=== PATIENT | male | born 1990 | race Caucasian/White ===

== ENCOUNTER 2019-03-20 20:13 | Emergency (ER) | payer BC, OTHER ==
[2019-03-20] MEDS ORDERED: Lidocaine 1% 10 ML MDV INJECT ONE (20:32)
[2019-03-20] MEDS ORDERED: Diphtheria,Pertussis(Acell),Tetanus Vaccine 0.5 ML Syringe IM ONE (20:32)
--- NOTE | 2019-03-20 20:47 | EDM.PDOC ---
ED HPI GENERAL MEDICAL PROBLEM - General Chief Complaint: Laceration Stated Complaint: PT HURT LT HAND Time Seen by Provider: 03/20/19 20:25 Source of Information: Reports: Patient History Limitations: Reports: No Limitations - History of Present Illness INITIAL COMMENTS - FREE TEXT/NARRATIVE: Presents reporting that he was going down the steps up a stack when he slipped and caught himself with his right hand. He lacerated the hand near the fifth finger area no other injuries. Unknown tetanus status. left palm Pain Score (Numeric/FACES): 6 - Related Data Allergies Allergy/AdvReac Type Severity Reaction Status Date / Time No Known Allergies Allergy Verified 03/20/19 20:32 Home Meds: Home Meds . [No Known Home Meds] 03/20/19 [History] Past Medical History - Past Health History Medical/Surgical History: Denies Medical/Surgical History ED ROS GENERAL - Review of Systems Review Of Systems: ROS reveals no pertinent complaints other than HPI. ED EXAM, SKIN/RASH Exam: See Below General Appearance: Alert, No Apparent Distress Ears: Normal External Exam Nose: Normal Inspection Throat/Mouth: Normal Inspection Head: Atraumatic, Normocephalic Neck: Normal Inspection Respiratory/Chest: No Respiratory Distress, Lungs Clear, Normal Breath Sounds Cardiovascular: Normal Peripheral Pulses Extremities: Other (Left hand palmar surface over the fifth MP joint 1.5 cm laceration. Full range of motion of all digits and wrist without hesitation or limitation fifth digit full flexion and extension. CMS intact distally) Neurological: Alert, Oriented ED SKIN PROCEDURES - Laceration/Wound Repair Left Hand Appearance: Superficial Anesthetic Type: Local Local Anesthesia - Lidocaine (Xylocaine): 1% Plain Local Anesthetic Volume: 3cc Skin Prep: Chlorhexidine (Hibiciens), Other (Running water) Exploration/Debridement/Repair: Wound Explored, In a Bloodless Field, Explored to Base Closed with: Sutures Lac/Wound length In cm: 1.5 Suture Size: 4-0 # of Sutures: 3 Suture Type: Nylon, Interrupted Course - Vital Signs Last Recorded V/S: Last Vital Signs Temp 36.5 C 03/20/19 20:26 Pulse 82 03/20/19 20:26 Resp 18 03/20/19 20:26 BP 142/74 H 03/20/19 20:26 Pulse Ox 97 03/20/19 20:26 - Orders/Labs/Meds Orders: Active Orders 24 hr Category Date Time Status Vaccines to be Administered [RC] PER UNIT ROUTINE Care 03/20/19 20:32 Ordered Diphth,Pertuss(Acell),Tet Vac [Adacel] Med 03/20/19 20:32 Once 0.5 ml IM .ONCE ONE Lidocaine 1% [Xylocaine 1%] Med 03/20/19 20:32 Once 10 ml INJECT ONETIME ONE Departure - Departure Time of Disposition: 20:53 Disposition: Home, Self-Care 01 Condition: Good Clinical Impression: Laceration - Discharge Information *PRESCRIPTION DRUG MONITORING PROGRAM REVIEWED*: Not Applicable *COPY OF PRESCRIPTION DRUG MONITORING REPORT IN PATIENT BERTA: Not Applicable Referrals: PCP,None [Primary Care Provider] - [facility] [Outside] [facility] [Outside] Additional Instructions: The following information is given to patients seen in the emergency department who are being discharged to home. This information is to outline your options for follow-up care. We provide all patients seen in our emergency department with a follow-up referral. The need for follow-up, as well as the timing and circumstances, are variable depending upon the specifics of your emergency department visit. If you don't have a primary care physician on staff, we will provide you with a referral. We always advise you to contact your personal physician following an emergency department visit to inform them of the circumstance of the visit and for follow-up with them and/or the need for any referrals to a consulting specialist. The emergency department will also refer you to a specialist when appropriate. This referral assures that you have the opportunity for follow-up care with a specialist. All of these measure are taken in an effort to provide you with optimal care, which includes your follow-up. Under all circumstances we always encourage you to contact your private physician who remains a resource for coordinating your care. When calling for follow-up care, please make the office aware that this follow-up is from your recent emergency room visit. If for any reason you are refused follow-up, please contact the [facility] Emergency Department at and asked to speak to the emergency department charge nurse. 1. Watch for signs of infection: Redness, swelling, really drainage report promptly 2. Keep clean and dry 3. Suture removal 10-14 days - My Orders Last 24 Hours: My Active Orders 03/20/19 20:32 Vaccines to be Administered [RC] PER UNIT ROUTINE Diphth,Pertuss(Acell),Tet Vac [Adacel] 0.5 ml IM .ONCE ONE Lidocaine 1% [Xylocaine 1%] 10 ml INJECT ONETIME ONE - Assessment/Plan Last 24 Hours: My Active Orders 03/20/19 20:32 Vaccines to be Administered [RC] PER UNIT ROUTINE Diphth,Pertuss(Acell),Tet Vac [Adacel] 0.5 ml IM .ONCE ONE Lidocaine 1% [Xylocaine 1%] 10 ml INJECT ONETIME ONE
[2019-03-20 21:03] VITALS: BP 111/75; PULSE 71
== END 2019-03-20 21:05 | disposition home or self-care (01) ==
LOC: MW.ED 20:13
DX: S61.412A Laceration without foreign body of left hand, initial encounter (principal); Z23 Encounter for immunization; W18.49XA Other slipping, tripping and stumbling without falling, initial encounter
CPT/HCPCS: 12001; 90471; 90715; 99282; J2001